=== PATIENT | male | born 1985 | race Caucasian/White ===

== ENCOUNTER 2021-10-04 13:14 | Emergency (ER) | payer OTHER | END 2021-10-04 15:00 | disposition home or self-care (01) | LOC: CSHERS 13:14 | DX: S93.402A Sprain of unspecified ligament of left ankle, initial encounter (principal); F17.210 Nicotine dependence, cigarettes, uncomplicated; Y30.XXXA Falling, jumping or pushed from a high place, undetermined intent, initial encounter ==